=== PATIENT | female | born 1980 | race Caucasian/White ===

== ENCOUNTER 2020-04-16 13:40 | Outpatient (REF) | payer BC, SELFPAY ==
[2020-04-18 18:33] LABS: HPV mRNA E6/E7 Not Detected (Not Detected)
[2020-04-22 18:10] LABS: CT PCR NOT DETECTED (Not Detect.); NG PCR NOT DETECTED (Not Detect.)
== END 2020-04-16 13:41 | disposition home or self-care (01) ==
LOC: HO.LAB 13:40
PROVIDERS: PCP Hospitalist; Referring Provider Hospitalist; Visit Provider Obstetrics & Gynecology
DX: Z01.419 Encounter for gynecological examination (general) (routine) without abnormal findings (principal); N92.1 Excessive and frequent menstruation with irregular cycle
CPT/HCPCS: 87491; 87591; 87624; 88142

== ENCOUNTER 2020-04-29 16:12 | Outpatient (REF) | payer BC, SELFPAY ==
[2020-04-29 16:40] LABS: Hematocrit 40.1 % (37-47); Hemoglobin 13.2 g/dl (12.0-16.0); Mean Corpuscular HGB Conc 32.9 g/dl (31.0-35.0); Mean Corpuscular Hemoglobin 29.9 pg (27.0-33.0); Mean Corpuscular Volume 90.9 fL (80-98); Mean Platelet Volume 10.5 fL (9.4-12.3); Platelet Count 267 X10*3/uL (160-400); Red Blood Count 4.41 X10*6/uL (4.20-5.50); Red Cell Distribution Width 12.8 % (11.0-16.0); White Blood Count 7.2 X10*3/uL (4.8-10.8)
[2020-04-29 17:22] LABS: HCG Quantitative < 2 mIU/mL; Thyroid Stimulating Hormone 1.95 uIU/mL (0.32-4.0)
== END 2020-04-29 16:13 | disposition home or self-care (01) ==
LOC: HO.LAB 16:12
PROVIDERS: PCP Hospitalist; Visit Provider Obstetrics & Gynecology
DX: N92.1 Excessive and frequent menstruation with irregular cycle (principal)
CPT/HCPCS: 36415; 84443; 84702; 85027

== ENCOUNTER 2020-05-01 13:44 | Outpatient (REF) | payer BC, SELFPAY ==
--- NOTE | 2020-05-01 13:50 | US_ITS ---
EXAMINATION: PELVIC ULTRASOUND CLINICAL INFORMATION: EXCESSIVE AND FREQUENT MENSTRUATION AND IRREGULAR CYCLE COMPARISON: Previous CT of the abdomen and pelvis August 2016 TECHNIQUE: Transabdominal and transvaginal pelvic ultrasound was performed. Transvaginal exam was performed for better visualization of the uterus and ovaries. FINDINGS: The uterus is anteverted and measures 9.7 x 4 x 5 cm in dimension. No focal uterine lesion is seen. Endometrial thickness is normal estimated at 0.4 cm. The cervix is normal. The ovaries are normal. The right ovary measures 2.9 x 2.3 x 1.6 cm. The left ovary measures 3.9 x 1.6 x 2.1 cm. There is no fluid in the pelvis. US/US pelvic complete IMPRESSION: Unremarkable exam.
--- NOTE | 2020-05-01 13:50 | US_ITS ---
EXAMINATION: PELVIC ULTRASOUND CLINICAL INFORMATION: EXCESSIVE AND FREQUENT MENSTRUATION AND IRREGULAR CYCLE COMPARISON: Previous CT of the abdomen and pelvis August 2016 TECHNIQUE: Transabdominal and transvaginal pelvic ultrasound was performed. Transvaginal exam was performed for better visualization of the uterus and ovaries. FINDINGS: The uterus is anteverted and measures 9.7 x 4 x 5 cm in dimension. No focal uterine lesion is seen. Endometrial thickness is normal estimated at 0.4 cm. The cervix is normal. The ovaries are normal. The right ovary measures 2.9 x 2.3 x 1.6 cm. The left ovary measures 3.9 x 1.6 x 2.1 cm. There is no fluid in the pelvis. US/US transvaginal IMPRESSION: Unremarkable exam.
== END 2020-05-01 13:45 | disposition home or self-care (01) ==
LOC: HO.US 13:44
PROVIDERS: Visit Provider Obstetrics & Gynecology
DX: N92.1 Excessive and frequent menstruation with irregular cycle (principal)
CPT/HCPCS: 76830; 76856

== ENCOUNTER 2020-05-22 13:53 | Outpatient (REF) | payer BC, SELFPAY | END 2020-05-22 13:54 | disposition home or self-care (01) | LOC: HO.LAB 13:53 | PROVIDERS: PCP Hospitalist; Visit Provider Obstetrics & Gynecology | DX: Z12.4 Encounter for screening for malignant neoplasm of cervix (principal); R87.615 Unsatisfactory cytologic smear of cervix; N92.1 Excessive and frequent menstruation with irregular cycle | CPT/HCPCS: 58100; 88142; 88305 ==

== ENCOUNTER → 2020-06-05 14:59 | Outpatient (BNVA) | payer BC, SELFPAY | PROVIDERS: PCP Hospitalist; Visit Provider Obstetrics & Gynecology ==

== ENCOUNTER 2023-03-30 13:06 | Outpatient (REF) | payer BC, SELFPAY ==
[2023-03-30 13:39] LABS: Appearance Urine Clear; Color Urine Yellow; Glucose Urine UA Negative (Negative); Leukocyte Esterase Urine Moderate (2+) (Negative); Nitrite Urine Negative (Negative); PH 6.5 (5.0-9.0); Specific Gravity - Urine <= 1.005 (1.005-1.025); UMIC TRIGGER UACC YES; Urine Blood Moderate (2+) (Negative); Urine Ketones Negative (Negative); Urine Protein Negative (Neg-Trace)
[2023-03-30 13:59] LABS: Bacteria Urine Trace (None Seen); Hyaline Casts Urine 0-2 /LPF (0-2); RBC Urine 0-2 /HPF (0-2); Squamous Epithelial Cell Urine 0-2 /HPF (0-2); UACC Culture Trigger YES
== END 2023-03-30 13:07 | disposition home or self-care (01) ==
LOC: HO.LAB 13:06
PROVIDERS: PCP Nurse Practitioner Family; Visit Provider Internal Medicine Medical Oncology
DX: N39.0 Urinary tract infection, site not specified (principal)
CPT/HCPCS: 81001; 87086; 87088; 87186

== ENCOUNTER 2023-05-19 14:28 | Outpatient (AMB) | payer BC, SELFPAY ==
--- NOTE | 2023-05-19 14:42 | MHC.OFFVIS ---
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 Complaining of heavy menstrual cycle associated past with blood clots. Last Pap/HPV in 06/06 was negative Last screening Mammogram at [facility] and breast ultrasound was suspicious in March of 2022 , the patient had a breast biopsy which was benign, repeat breast ultrasound in September of 2022 was negative [facility] Medical History ASCUS of cervix with negative high risk HPV Seasonal allergies Family History Father Lung cancer Mother Uterus cancer Paternal Grandmother Breast cancer Paternal Aunt Breast cancer Social History Alcohol intake: current Alcohol intake frequency: a few times a month Alcohol type: beer, wine and hard liquor Sexual orientation: Straight/Heterosexual Gender identity: Female Female Reproductive History Menstrual Age of Menarche: 15 Date of last menstrual period: 05/15/23 Total pregnancies: 2 Full term: 2 Number of Living Children: 2 Date of last pap smear: 05/23/20 Date of Mammogram: 03/18/22 Review of Systems Const All systems reviewed & are unremarkable except as noted in HPI and below Card Reports as per HPI Resp Reports as per HPI GI Reports as per HPI and Reports no additional complaints Reports as per HPI Physical Exam Vital Signs: Last Vital Signs BP 120/76 05/19/23 14:45 BMI result Body Mass Index 30.1 Const General: cooperative, healthy appearing and comfortable Chest Chest palpation & inspection: normal inspection of the chest and normal palpation of entire chest wall Breast/axilla inspection: normal inspection of the breasts and normal inspection of the axillae Breast/axilla palpation: normal palpation of the breasts, normal palpation of the axillae and no axillary lymphadenopathy Resp Effort & Inspection: normal respiratory effort Auscultation: clear to auscultation bilaterally Percussion: percussion normal Cardio Palpation: normal PMI Rate: regular rate Rhythm: regular rhythm Heart sounds: no murmurs and no rubs Peripheral pulses: Peripheral pulses 2+ throughout GI Inspection: Yes normal to inspection Palpation (GI): Soft to palpation, nontender, no guarding, not rigid and No hepatosplenomegaly present Percussion: Yes normal to percussion Auscultation: normal bowel sounds Rectal Exam - Female: deferred General: Yes bladder normal to palpation External Female Exam: No lesion Speculum Exam - Vagina: normal appearance of the vagina, normal palpation, normal vaginal discharge and not erythematous Speculum Exam - Cervix: normal appearance of the cervix and normal palpation Bimanual exam- vagina & uterus: normal bimanual exam, normal palpation, uterine size normal, bladder normal to palpation, consistency normal and normal palpation Bimanual Exam- Adnexa, other: normal adnexae, no masses and no tenderness Assessment & Plan Assessment & Plan (1) Well woman exam: Code(s): Z01.419 - Encounter for gynecological examination (general) (routine) without abnormal findings Plan: Cotesting not indicated this year. Mammogram ordered. Counseled the patient about the recommended dietary allowance of 1000 mg of Calcium & 600 IU of vitamin D. The patient was instructed to perform monthly self-breast exams and to schedule an annual exam in a year; All questions answered and the patient verbalized understanding. Instructed the patient to schedule annual exam in a year (2) Abnormal uterine bleeding: Code(s): N93.9 - Abnormal uterine and vaginal bleeding, unspecified Plan: Co testing not indicated this, GC and chlamydia taken CBC, TSH, prolactin, HCG, and pelvic ultrasound ordered. Discussed with the patient the different causes of abnormal bleeding including thyroid disorders, uterine and ovarian pathology, endometrial hyperplasia, carcinoma and other potential causes. Discussed with the patient the work up including CBC (to r/o anemia), TSH, pelvic Ultrasound, endometrial biopsy to r/o endometrial pathology. All questions answered and the patient verbalized understanding. Instructed the patient to schedule an appointment for an endometrial biopsy in 2 weeks. Orders: Orders Prolactin Today N93.9 - Abnormal uterine and vaginal bleeding, unspecified HCG Quantitative Today N93.9 - Abnormal uterine and vaginal bleeding, unspecified Complete Blood Count no Diff Today N93.9 - Abnormal uterine and vaginal bleeding, unspecified MM screening mammo BI Today Z12.31 - Encounter for screening mammogram for malignant neoplasm of breast TSH reflex Free T4 Today N93.9 - Abnormal uterine and vaginal bleeding, unspecified US pelvic and transvaginal Today N93.9 - Abnormal uterine and vaginal bleeding, unspecified Coding Level of Care Code Est Pt Prev Care 40-64y(34369) Diagnoses Well woman exam Z01.419 Abnormal uterine bleeding N93.9
[2023-05-19 14:45] VITALS: BP 120/76; BMI 30.1
== END 2023-05-19 15:13 | disposition home or self-care (01) ==
PROVIDERS: PCP Nurse Practitioner Family; Visit Provider Obstetrics & Gynecology
DX: Z01.419 Encounter for gynecological examination (general) (routine) without abnormal findings (principal); N93.9 Abnormal uterine and vaginal bleeding, unspecified
CPT/HCPCS: 99396

== ENCOUNTER 2023-05-19 14:28 | Outpatient (REF) | payer BC, SELFPAY ==
[2023-05-19 15:38] LABS: Hematocrit 39.6 % (37.0-47.0); Hemoglobin 13.4 g/dl (12.0-16.0); Mean Corpuscular HGB Conc 33.8 g/dl (31.0-35.0); Mean Corpuscular Hemoglobin 30.6 pg (27.0-33.0); Mean Corpuscular Volume 90.4 fL (80.0-98.0); Mean Platelet Volume 10.3 fL (9.4-12.3); Platelet Count 231 X10*3/uL (160-400); Red Blood Count 4.38 X10*6/uL (4.20-5.50); Red Cell Distribution Width 12.9 % (11.0-16.0); White Blood Count 6.1 X10*3/uL (4.8-10.8)
== END 2023-05-19 14:29 | disposition home or self-care (01) ==
LOC: HO.LAB 14:28
PROVIDERS: PCP Nurse Practitioner Family; Visit Provider Obstetrics & Gynecology
DX: N93.9 Abnormal uterine and vaginal bleeding, unspecified (principal)
CPT/HCPCS: 0353U; 84146; 84443; 84702; 85027

== ENCOUNTER 2023-05-19 15:18 | Outpatient (REF) | payer BC, SELFPAY | END 2023-05-19 15:19 | disposition home or self-care (01) | LOC: HO.LNP 15:18 | PROVIDERS: Visit Provider Obstetrics & Gynecology | DX: Z13.89 Encounter for screening for other disorder (principal) ==

== ENCOUNTER 2023-06-16 14:25 | Outpatient (REF) | payer BC, SELFPAY ==
--- NOTE | ~2023-06-16 | US_ITS ---
EXAMINATION: US PELVIS COMPLETE CLINICAL INFORMATION: Abnormal uterine bleeding COMPARISON: Pelvic ultrasound 04/21/2020 TECHNIQUE: Transabdominal and transvaginal imaging was performed. FINDINGS: The uterus is of normal size and echogenicity measuring 9.5 x 5.0 x 5.7 cm. A regular homogeneous endometrium is identified measuring 0.3 cm. Nabothian cysts in the cervix. Both ovaries are of normal size and echogenicity. The right measures 2.6 x 1.4 x 1.5 cm for a volume of 2.9 mL. The left measures 3.3 x 2.2 x 1.8 cm for a volume of 6.8 mL. There is no pelvic free fluid. US/US pelvic and transvaginal IMPRESSION: Unremarkable pelvic ultrasound.
== END 2023-06-16 14:26 | disposition home or self-care (01) ==
LOC: HO.US 14:25
PROVIDERS: PCP Nurse Practitioner Family; Visit Provider Obstetrics & Gynecology
DX: N93.9 Abnormal uterine and vaginal bleeding, unspecified (principal)
CPT/HCPCS: 76830; 76856

== ENCOUNTER 2023-06-24 10:08 | Outpatient (REF) | payer BC, SELFPAY | END 2023-06-24 10:09 | disposition home or self-care (01) | LOC: HO.LNP 10:08 | PROVIDERS: PCP Nurse Practitioner Family; Visit Provider Obstetrics & Gynecology | DX: N93.9 Abnormal uterine and vaginal bleeding, unspecified (principal) | CPT/HCPCS: 58100; 81025; 88305 ==

== ENCOUNTER 2023-06-24 10:08 | Outpatient (AMB) | payer BC, SELFPAY ==
--- NOTE | 2023-06-24 10:21 | MHC.OFFVIS ---
Intake Vital Signs 06/24/23 10:23 Height 5 ft 3 in Weight 169 lb 12.095 oz BMI 30.1 BP 118/70 Intake Visit Reasons: US follow up Allergies latex [LATEX] Allergy (Severe, Verified 05/19/23 14:46) HIVES, ANAPHYLAXIS LOBSTER Allergy (Severe, Uncoded 05/19/23 14:46) ANAPHYLAXIS latex Allergy (Unknown, Uncoded 05/19/23 14:46) anaphylaxis shellfish Allergy (Unknown, Uncoded 05/19/23 14:46) anaphylaxis HPI HPI Comments History of Present Illness Details Presenting for [facility] Medical History ASCUS of cervix with negative high risk HPV Seasonal allergies Family History Father Lung cancer Mother Uterus cancer Paternal Grandmother Breast cancer Paternal Aunt Breast cancer Social History Alcohol intake: current Alcohol intake frequency: a few times a month Alcohol type: beer, wine and hard liquor Sexual orientation: Straight/Heterosexual Gender identity: Female Female Reproductive History Menstrual Age of Menarche: 15 Review of Systems Const All systems reviewed & are unremarkable except as noted in HPI and below Reports as per HPI and Reports no additional complaints GI Reports no additional complaints Reports no additional complaints Physical Exam Vital Signs: Last Vital Signs BP 118/70 06/24/23 10:23 BMI result Body Mass Index 30.1 Office Procedures Endometrial Biopsy Details: The patient was counseled regarding the indication and benefits of endometrial sampling to rule out endometrial pathology including not limited to endometrial hyperplasia or endometrial cancer and others; The alternatives (Either do nothing vs. hysteroscopy D&C) & the risks were discussed with the patient including but not limited: pain, uterine perforation, bleeding, infection, possible injury to bladder, bowel, ureter, possible need for blood transfusion with all its possible risks. The patient verbalized understanding all questions answered and signed consent. Urine test done in the office was negative The patient was placed into the dorsal lithotomy position; a speculum was inserted in the vagina. Using aseptic technique for the procedure, the cervix was cleansed with Betadine. The anterior lip of the cervix was grasped with a single tooth tenaculum. The uterus was sounded to 7 cm with a 4 mm Pipelle was used. Tissues samples were obtained and placed in formalin, in a patient labeled container and sent to the pathology department. At the end of the procedure, there was minimal bleeding noted The patient tolerated the procedure well and was discharged in good condition with the following instructions: Nothing in the vagina until the bleeding stops. No sex until the bleeding stops, to call if any of the following occurs: fever (>100.4), flu-like symptoms, abdominal pain, heavy bleeding, four smelling vaginal discharge. The patient was instructed to schedule a Follow up appointment in 2 weeks to discuss pathology results of the biopsy and treatment options. This note was generated with a voice recognition program. Some errors may have been overlooked during the review of this note. Sometimes these errors may affect the content or meaning of a given sentence. [id number] Biopsy Assessment & Plan Assessment & Plan (1) Abnormal uterine bleeding: Code(s): N93.9 - Abnormal uterine and vaginal bleeding, unspecified Plan: EMB done, see procedure note Orders: Orders AMB Endometrial Biopsy Today N93.9 - Abnormal uterine and vaginal bleeding, unspecified Coding Level of Care Code Procedure Only Diagnoses Abnormal uterine bleeding N93.9 CPT Codes Endometrial Biopsy - CPT: 59516-[id number] Biopsy ([id number])
[2023-06-24 10:23] VITALS: BP 118/70; BMI 30.1
== END 2023-06-24 10:36 | disposition home or self-care (01) ==
PROVIDERS: PCP Nurse Practitioner Family; Visit Provider Obstetrics & Gynecology
DX: N93.9 Abnormal uterine and vaginal bleeding, unspecified (principal); Z32.02 Encounter for pregnancy test, result negative
CPT/HCPCS: 58100

== ENCOUNTER 2023-08-03 14:23 | Outpatient (AMB) | payer BC, SELFPAY ==
--- NOTE | 2023-08-03 14:28 | MHC.OFFVIS ---
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 The following workup was done.: H&H= 13.4/39.6 TSH, hCG, prolactin, GC and chlamydia were negative. Endometrial biopsy pathology showed proliferative endometrium with no evidence of hyperplasia and/or malignancy. Co testing was done 06/06 was negative. Mammogram was BI-RADS [facility] at [facility] Pelvic ultrasound was unremarkable [facility] Medical History ASCUS of cervix with negative high risk HPV Seasonal allergies Family History Father Lung cancer Mother Uterus cancer Paternal Grandmother Breast cancer Paternal Aunt Breast cancer Social History Alcohol intake: current Alcohol intake frequency: a few times a month Alcohol type: beer, wine and hard liquor Sexual orientation: Straight/Heterosexual Gender identity: Female Female Reproductive History Menstrual Age of Menarche: 15 Date of last menstrual period: 07/13/23 control method: none Review of Systems Const All systems reviewed & are unremarkable except as noted in HPI and below Reports as per HPI and Reports no additional complaints GI Reports no additional complaints Reports no additional complaints Physical Exam Vital Signs: Last Vital Signs BP 116/70 08/03/23 14:29 BMI result Body Mass Index 30.1 Assessment & Plan Assessment & Plan (1) Abnormal uterine bleeding: Comment: With dysmenorrhea Code(s): N93.9 - Abnormal uterine and vaginal bleeding, unspecified Plan: Discussed with the patient the results of the work up done and options of treatment including NSAIDs Q 6- 8 hours day 1-3, Lysteda, BCP's, Mirena IUD. All pros, cons, risks and benefits if each option was discussed with the patient and the patient decided to start with ibuprofen 600 mg p.o. Q 6-8 hours day 1-3 if it fails consider Lysteda versus Mirena IUD. Instructions given the patient to call day 1 of menstrual cycle cycle in case she decided to proceed Mirena IUD. All questions answered the patient verbalized understanding. Coding Level of Care Code Est Pt Level 3 (86417) Diagnoses Abnormal uterine bleeding N93.9
[2023-08-03 14:29] VITALS: BP 116/70; BMI 30.1
== END 2023-08-03 16:07 | disposition home or self-care (01) ==
PROVIDERS: PCP Nurse Practitioner Family; Visit Provider Obstetrics & Gynecology
DX: N93.9 Abnormal uterine and vaginal bleeding, unspecified (principal)
CPT/HCPCS: 99213

== ENCOUNTER → 2023-08-03 14:23 | Outpatient (BNVA) | payer BC, SELFPAY | PROVIDERS: PCP Nurse Practitioner Family; Visit Provider Obstetrics & Gynecology ==

== ENCOUNTER 2024-01-31 13:33 | Outpatient (REF) | payer BC, SELFPAY ==
[2024-01-31 14:42] LABS: Appearance Urine Cloudy; Color Urine Yellow; Glucose Urine UA Negative (Negative); Leukocyte Esterase Urine Large (3+) (Negative); Nitrite Urine Negative (Negative); PH 6.5 (5.0-9.0); Specific Gravity - Urine 1.025 (1.005-1.025); UMIC TRIGGER UA YES; UMIC TRIGGER UACC YES; Urine Blood Large (3+) (Negative); Urine Ketones Trace mg/dL (Negative); Urine Protein 30 (1+) mg/dL (Neg-Trace)
[2024-01-31 14:45] LABS: Bacteria Urine Trace (None Seen); Hyaline Casts Urine 0-2 /LPF (0-2); RBC Urine >20 /HPF (0-2); Squamous Epithelial Cell Urine 0-2 /HPF (0-2); UACC Culture Trigger YES; WBC Urine >50 /HPF (0-5)
== END 2024-01-31 13:34 | disposition home or self-care (01) ==
LOC: HO.LAB 13:33
PROVIDERS: PCP Nurse Practitioner Family; Visit Provider Internal Medicine Medical Oncology
DX: N39.0 Urinary tract infection, site not specified (principal)
CPT/HCPCS: 81001; 87086